=== PATIENT | male | born 1985 | race African-American/Black ===

== ENCOUNTER 2017-03-10 13:40 | Emergency (ER) | payer MEDICAID, OTHER ==
[2017-03-10] MEDS: ONDANSETRON (ODT) 4 MG TAB ODT (18:29)
[2017-03-10] MEDS: morphine 4 MG/ML VIAL IM (18:30)
== END 2017-03-10 19:02 | disposition home or self-care (01) ==
LOC: FTE 13:40
DX: S33.5XXA Sprain of ligaments of lumbar spine, initial encounter (principal); X58.XXXA Exposure to other specified factors, initial encounter; Y92.9 Unspecified place or not applicable
CPT/HCPCS: 72100; 96372; 99284-25